=== PATIENT | male | born 1990 | race Caucasian/White ===

== ENCOUNTER → 2022-05-31 | Outpatient (REF) | payer OTHER | LOC: M LABSMT 09:28 | PROVIDERS: ATTEND Urology | DX: Z30.2 Encounter for sterilization (principal) ==

== ENCOUNTER → 2022-07-20 | Outpatient (REF) | payer OTHER ==
[2022-07-20 13:12] LABS: SEMEN APPEARANCE OPAQUE (OPAQUE); SEMEN VISCOSITY LIQUID (LIQUID); SEMEN VOLUME 3.2 ml (2.0-5.0); SEMEN pH 8.5 (7.0-8.0); WBC CONCENTRATION >1 M/ml (<=1 M/ml)
== END ==
LOC: M SMT 12:25
PROVIDERS: ATTEND Urology
DX: Z30.2 Encounter for sterilization (principal)